=== PATIENT | female | born 1990 | race Two or more races ===

== ENCOUNTER 2018-07-01 04:18 | Emergency (ER) | payer OTHER ==
[2018-07-01] MEDS ORDERED: Sodium Chloride 0.9% 1,000 ML IV ONE (04:33)
[2018-07-01] MEDS ORDERED: Ketorolac 30 MG/ML SDV IVPUSH ONE (04:33)
--- NOTE | 2018-07-01 05:23 | EDM.PDOC ---
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- RECENT ECTOPIC Time Seen by Provider: 07/01/18 05:22 Source of Information: Reports: Patient - History of Present Illness INITIAL COMMENTS - FREE TEXT/NARRATIVE: HISTORY AND PHYSICAL: History of present illness: []Patient awoke with right lower quadrant pain sharp stabbing pain in one of the walker nearly resolved by time arrival she spoken with OB environmental protection specialist who recommended she come in for evaluation She does have a history of ectopic with methotrexate being administered on December 15 No fever nausea vomiting chills sweats no chest pain shortness breath headache dizziness palpitation no bowel or urine symptoms she has had vaginal bleeding since the methotrexate injections Review of systems: As per history of present illness and below otherwise all systems reviewed and negative. Past medical history: As per history of present illness and as reviewed below otherwise noncontributory. Surgical history: As per history of present illness and as reviewed below otherwise noncontributory. Social history: No reported history of drug or alcohol abuse. Family history: As per history of present illness and as reviewed below otherwise noncontributory. Physical exam: HEENT: Atraumatic, normocephalic, pupils reactive, negative for conjunctival pallor or scleral icterus, mucous membranes moist, throat clear, neck supple, nontender, trachea midline. Lungs: Clear to auscultation, breath sounds equal bilaterally, chest nontender. Heart: S1S2, regular, negative for clicks, rubs, or JVD. Abdomen: Soft, nondistended, nontender. Negative for masses or hepatosplenomegaly. Negative for costovertebral tenderness. Pelvis: Stable nontender. Genitourinary: Deferred. Rectal: Deferred. Extremities: Atraumatic, negative for cords or calf pain. Neurovascular unremarkable. Neuro: Awake, alert, oriented. Cranial nerves II through XII unremarkable. Cerebellum unremarkable. Motor and sensory unremarkable throughout. Exam nonfocal. Diagnostics: []CBC CMP UA hCG Quant Pelvic ultrasound Therapeutics: []Normal saline Toradol 30 mg IV Impression: []Abdominal pain resolved Ectopic history Definitive disposition and diagnosis as appropriate pending reevaluation and review of above. Right Lower Abdomen Pain Score (Numeric/FACES): 1 - Related Data Allergies Allergy/AdvReac Type Severity Reaction Status Date / Time No Known Allergies Allergy Verified 07/01/18 04:32 Home Meds: Home Meds . 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 , - Past Surgical History Female Surgical History: Reports: Section Social & Family History - Tobacco Use Smoking Status *Q: Former Smoker Used Tobacco, but Quit: Yes Month/Year Tobacco Last Used: 10 - Recreational Drug Use Recreational Drug Use: No ED ROS GENERAL - Review of Systems Review Of Systems: See Below ED EXAM, GENERAL - Physical Exam Exam: See Below Course - Vital Signs Last Recorded V/S: Last Vital Signs Temp 97.4 F 07/01/18 04:29 Pulse 62 07/01/18 04:29 Resp 18 07/01/18 04:29 BP 117/56 L 07/01/18 04:29 Pulse Ox 98 07/01/18 04:29 - Orders/Labs/Meds Orders: Active Orders 24 hr Category Date Time Status Pelvis Non OB Comp [US] Stat Exams 07/01/18 05:23 Taken Labs: Laboratory Tests 07/01/18 07/01/18 07/01/18 Range/Units 05:00 05:00 05:45 WBC 10.64 (4.0-11.0) K/uL RBC 4.48 (4.30-5.90) M/uL Hgb 12.8 (12.0-16.0) g/dL Hct 38.1 (36.0-46.0) % MCV 85.0 (80.0-98.0) fL MCH 28.6 (27.0-32.0) pg MCHC 33.6 (31.0-37.0) g/dL RDW Std Deviation 41.9 (28.0-62.0) fl RDW Coeff of Darshana 14 (11.0-15.0) % Plt Count 354 (150-400) K/uL MPV 8.90 (7.40-12.00) fL Neut % (Auto) 75.2 (48.0-80.0) % Lymph % (Auto) 19.5 (16.0-40.0) % [place] % (Auto) 4.9 (0.0-15.0) % Eos % (Auto) 0.3 (0.0-7.0) % Baso % (Auto) 0.1 (0.0-1.5) % Neut # (Auto) 8.0 H (1.4-5.7) K/uL Lymph # (Auto) 2.1 (0.6-2.4) K/uL [place] # (Auto) 0.5 (0.0-0.8) K/uL Eos # (Auto) 0.0 (0.0-0.7) K/uL Baso # (Auto) 0.0 (0.0-0.1) K/uL Nucleated RBC % 0.0 /100WBC Nucleated RBCs # 0 K/uL Sodium 140 (136-145) mmol/L Potassium 4.1 (3.5-5.1) mmol/L Chloride 104 (98-107) mmol/L Carbon Dioxide 27.6 (21.0-32.0) mmol/L BUN 17 (7.0-18.0) mg/dL Creatinine 0.8 (0.6-1.0) mg/dL Est Cr Clr Drug Dosing 89.60 mL/min Estimated GFR (MDRD) > 60.0 ml/min Glucose 103 (74-106) mg/dL Calcium 9.5 (8.5-10.1) mg/dL Total Bilirubin 0.2 (0.2-1.0) mg/dL AST 14 L (15-37) IU/L ALT 26 (14-63) IU/L Alkaline Phosphatase 76 (46-116) U/L Total Protein 8.1 (6.4-8.2) g/dL Albumin 3.8 (3.4-5.0) g/dL Globulin 4.3 H (2.6-4.0) g/dL Albumin/Globulin Ratio 0.9 (0.9-1.6) HCG, Quant 79.0 mIU/mL Urine Color YELLOW Urine Appearance CLEAR Urine pH 5.5 (5.0-8.0) Ur Specific [place] 1.025 (1.001-1.035) Urine Protein NEGATIVE (NEGATIVE) mg/dL Urine Glucose (UA) NEGATIVE (NEGATIVE) mg/dL Urine Ketones NEGATIVE (NEGATIVE) mg/dL Urine Occult Blood LARGE H (NEGATIVE) Urine Nitrite NEGATIVE (NEGATIVE) Urine Bilirubin NEGATIVE (NEGATIVE) Urine Urobilinogen 0.2 (<2.0) EU/dL Ur Leukocyte Esterase NEGATIVE (NEGATIVE) Urine RBC 10-14 (0-2/HPF) Urine WBC 0-3 (0-5/HPF) Ur Squamous Epith Cells OCCASIONAL Urine Bacteria FEW (NEGATIVE) Urine Mucus LIGHT (NONE-MOD) Meds: Medications Discontinued Medications Generic Name Dose Route Start Last Admin Trade Name Dona PRN Reason Stop Dose Admin Sodium Chloride 1,000 mls @ 999 mls/hr 07/01/18 04:33 07/01/18 05:09 Normal Saline IV 07/01/18 05:33 999 mls/hr STAT ONE Administration Ketorolac Tromethamine 30 mg 07/01/18 04:33 07/01/18 05:09 Toradol IVPUSH 07/01/18 04:34 30 mg ONETIME ONE Administration Departure - Departure Time of Disposition: 06:44 Disposition: Home, Self-Care 01 Condition: Good Clinical Impression: Ectopic of ovary - Discharge Information Referrals: PCP,None [Primary Care Provider] - Forms: ED Department Discharge Additional Instructions: The following information is given to patients seen in the emergency department who are being discharged to home. This information is to outline your options for follow-up care. We provide all patients seen in our emergency department with a follow-up referral. The need for follow-up, as well as the timing and circumstances, are variable depending upon the specifics of your emergency department visit. If you don't have a primary care physician on staff, we will provide you with a referral. We always advise you to contact your personal physician following an emergency department visit to inform them of the circumstance of the visit and for follow-up with them and/or the need for any referrals to a consulting specialist. The emergency department will also refer you to a specialist when appropriate. This referral assures that you have the opportunity for follow-up care with a specialist. All of these measure are taken in an effort to provide you with optimal care, which includes your follow-up. Under all circumstances we always encourage you to contact your private physician who remains a resource for coordinating your care. When calling for follow-up care, please make the office aware that this follow-up is from your recent emergency room visit. If for any reason you are refused follow-up, please contact the [facility] emergency department at and asked to speak to the emergency department charge nurse. - My Orders Last 24 Hours: My Active Orders 07/01/18 05:23 Pelvis Non OB Comp [US] Stat - Assessment/Plan Last 24 Hours: My Active Orders 07/01/18 05:23 Pelvis Non OB Comp [US] Stat
[2018-07-01 05:26] LABS: CHLORIDE,CL 104 mmol/L (98-107); SODIUM,NA 140 mmol/L (136-145)
--- NOTE | 2018-07-01 11:49 | US ---
EXAM DATE: 07/01/18 PATIENT'S AGE: 27 Patient: NIKI MCGOVERN Facility: [place], [place] Site . Site : 1990 Study: US Pelvis [id number] 6:18:07 AM Ordering Physician: Israel Huddleston Final Report: INDICATION: Right lower quadrant pain. Right-sided ectopic with recent methotrexate treatment. Beta hCG 79. TECHNIQUE: Ultrasound pelvis transvaginal for better assessment or to better visualize the endometrium. Real-time sonographic images with spectral and color Doppler imaging of the ovaries were obtained. COMPARISON: None FINDINGS: Uterus: 8 x 4 x 3 cm. Normal echotexture of the myometrium. No masses. Endometrium: Transvaginal imaging was performed to better evaluate the endometrium. Endometrial thickness measures 9 mm. No sign of endometrial mass or fluid. Right ovary measures 5 x 4 x 4 cm and left ovary measures 3 x 2 x 2 cm. No sign of viable in the adnexa. A 2 cm cystic lesion is in or adjacent to the right ovary. Ill-defined soft tissue is difficult to distinguish from the right ovary. Left ovary is unremarkable. Normal arterial and venous blood flow is demonstrated in both ovaries. Cul-de-sac: No significant free fluid. IMPRESSION: 1. No sign of viable . 2. Ill-defined soft tissue and a 2 cm cystic lesion are in or adjacent to the right ovary. No sign of aniceto hemorrhage. 3. Remainder of the exam is unremarkable. No other specific finding to explain pain. Dictated by Ihsan Lange MD @ Jul 01 2018 6:23AM (Electronic Signature) Report Signed by Proxy. KEATON
== END 2018-07-01 07:09 | disposition home or self-care (01) ==
LOC: MW.ED 04:18
DX: O99.89 Other specified diseases and conditions complicating pregnancy, childbirth and the puerperium (principal); R10.31 Right lower quadrant pain; Z87.891 Personal history of nicotine dependence
CPT/HCPCS: 36415; 76856; 80053; 81001; 84702; 85025; 96361; 96374; 99284; J1885; J7040